=== PATIENT | male | born 1960 | race Caucasian/White ===

== ENCOUNTER → 2016-12-27 | Outpatient (CLI) | payer OTHER ==
[~2016-12-27] MED LIST: ASPIRIN81 MG PO; LIPITOR40 MG PO; LIPITOR80 MG PO; LISINOPRIL10 MG PO; NO MEDICATIONS; PLAVIX PO; ZESTRIL5 MG PO
--- NOTE | ~2016-12-27 | US37 ---
[facility] A Service of [facility] RADIOLOGY TEXT RESULTS PATIENT: ESAU LIRA LOCATION: CNIV : 62 UNIT #: [id number] AGE: [address]: Pablo James MD SEX: M ORDER DR: [id number] [facility] [address] [place], [place] [address] [id number] O MR#: [id number] Acc #: [id number] NAME: ESAU LIRA : 1960 SEX: M STUDY DATE/TIME: 12/27/2016 14:26 UNIT: CNIV ROOM: STUDY DESCRIPTION: US Carotid W/Doppler Bilateral Attending Physician: Pablo James M.D. Referring Physician: aPblo James M.D. Ordering Physician: Pablo James M.D. Primary Care Physician: Jose Klein M.D. MEDICAL IMAGING REPORT This report is preliminary unless electronic signature is present EXAM Bilateral carotid duplex DATE OF EXAMINATION 12/27/2016 HISTORY Right ICA occluded on prior exam, carotid stenosis of the left internal carotid artery. FINDINGS There is flow seen through the right common carotid, external carotid, and vertebral arteries. There is diffuse atherosclerosis seen throughout the right common carotid artery and carotid bifurcation. There is no flow seen through the right internal carotid artery. The right common carotid artery peak velocity is 34 cm/sec. The right internal carotid artery is occluded. The right external carotid artery has a peak velocity of 91 cm/sec, vertebral artery 34 cm/sec. No ICA/CCA Ratio is attainable because of the occluded ICA. There is patent flow seen throughout the left common carotid, internal carotid, and external carotid arteries. There is diffuse atherosclerosis of the left common carotid artery and carotid bifurcation. It appears regular, and homogeneous. This plaque extends into the internal and external carotid arteries. The left common carotid artery peak velocity is 34 cm/sec. The left internal carotid artery peak systolic over end diastolic velocities are: Proximal 178/72 cm/sec, mid 180/66 cm/sec, distal 175/70 cm/sec. The left external carotid artery peak velocity is 114 cm/sec, and vertebral artery 48 cm/sec. The left ICA/CCA Ratio is 2.6. IMPRESSION 1. 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 2. The left carotid artery has moderate atherosclerosis, consistent with 50%-69% stenosis by duplex criteria. Of note, the measured velocities may be falsely elevated because of the contralateral internal carotid artery occlusion. 3. Vertebral flow is antegrade bilaterally. Dictated by... Alex Jones M.D. THIS IS AN ELECTRONICALLY VERIFIED REPORT Alex Jones M.D. at 12/28/2016 8:32 AM [place] TD: 12/27/2016 18:36 JOB #: [id number] MEDICAL IMAGING REPORT Page 1 of 1 COPY
== END | disposition home or self-care (01) ==
LOC: CNIV 13:34
DX: I63.9 Cerebral infarction, unspecified (principal); I65.23 Occlusion and stenosis of bilateral carotid arteries
CPT/HCPCS: 93880